=== PATIENT | male | born 1990 | race Caucasian/White ===

== ENCOUNTER 2024-09-06 09:21 | Emergency (ER) | payer MEDICAID, SELFPAY ==
[2024-09-06 09:37] VITALS: BP 160/87; PULSE 89; RESP 18; TEMP 36.4; O2SAT 94
--- NOTE | 2024-09-06 10:05 | W.ED.GENAD ---
Discharge Plan Disposition Patient Disposition: Home Condition: Stable Discharge Details Clinical Impression: Tardive akathisia Primary Care Provider: None,None ED Provider: Chante Castorena Home Meds and New Rx's Prescriptions: New deutetrabenazine 6 mg tablet 6 mg PO BID 14 Days Qty: 28 0RF No Action escitalopram oxalate [Lexapro] 10 mg tablet 10 mg PO DAILY atomoxetine [Strattera] 18 mg capsule 36 mg PO QAM buspirone 10 mg tablet 7.5 mg PO BID methadone 10 mg/5 mL solution 60 mg PO DAILY Patient Comments: [facility] haloperidol 1 mg tablet 1 mg PO BID Patient Comments: since July from formerly [facility], stopped 1 week ago Discharge Instructions Instructions: Adverse Drug Reactions, Adult (DC) Additional Instructions: You were seen in the emergency department today for abnormal body movements likely due to stopping your Haldol. You should continue your Haldol taper as recommended by your provider, and I have started you on a medication called deutetrabenazine, which you will take twice a day. Your primary care provider needs to increase the dose of this medication over time to control your symptoms. If this does not completely control your symptoms, please reach out to your primary care provider to discuss next steps in management. The body movements associated with haloperidol can take several weeks to improve, please be patient and thank you for presenting for care today. HPI General Mode of arrival: ambulatory. Date/Time Provider Initiated Documentation: 09/06/24 09:25. Limitations to Documentation: no limitations. Information obtained by: patient. HPI Narrative: HPI: This is a 34-year-old male patient with a past medical history significant for polysubstance use disorder, who is presenting for evaluation of restless motor agitation. The patient reports he was prescribed Haldol for cocaine induced psychosis, and was instructed by his care provider to taper off of this medication. He elected to stop this medication cold turkey about 1 week ago, and since that time has had restlessness, feels like his skin is crawling, states that he cannot sit still. He has noticed twitching of his eyes and facial muscles, and felt unsafe driving due to these symptoms. He did restart the medication and is undergoing an active taper with blister pack prescription at this time. The patient reports that he has not started any other new medications other than methadone in the last few weeks. He has otherwise been in his normal state of health. He is residing at a sober home, has had no recent illnesses or injuries. He vapes nicotine but does not use alcohol or other illicit substances. Exam: Gen: Awake and alert, appears notably uncomfortable, restless, sitting and standing and pacing around the room HEENT: Non-icteric sclera, pupils equal and reactive at 2 mm bilaterally, EOMs are full. There are no tongue fasciculations Neck: Supple, full range of motion without torticollis Lungs: No apparent respiratory distress, normal respiratory effort. CV: Appears well perfused, strong distal pulses Abdomen: Non-distended MSK: Moves 4 extremities without apparent limitation in ROM Skin: Visualized skin without rashes, cyanosis. Neuro: Normal Gait, no obvious focal deficits or facial asymmetry. Speaks in full, clear sentences. The patient has no clonus or muscular rigidity Psych: Appropriate for situation, notably distressed by his inability to keep still, denies suicidal homicidal ideation MDM: This is a 34-year-old male patient presenting for evaluation of agitated motor movements in the setting of recent cessation of haloperidol. My differential includes but is not limited to tardive dyskinesia, akathisia, certainly considered withdrawal symptoms, acute intoxication. The patient has no evidence on physical examination for serotonin syndrome, neuroleptic malignant syndrome. The patient is reassuringly hemodynamically stable, tolerating p.o. intake, and have a low concern for metabolic and electrolyte derangements, dehydration, kidney injury. He has a safe ride home and so we will initiate treatment, starting with Benadryl and escalating to benzodiazepines as needed. I will also provide the patient with a prescription for deutetrabenazine for long-term management of his condition. ED Course: The patient had slight improvement in his symptoms with Benadryl, received an oral Ativan to good effect. Prescription was sent and I provided him with a referral to establish with primary care in the next week so that this medication can be uptitrated to affect. At this time, the patient has had a full medical evaluation and is safe for discharge to home. They are hemodynamically stable, ambulatory, and tolerating PO. They are understanding of the follow-up plan and return precautions. They left our facility without incident. Chante Castorena MD Related Data Home Medications ?Medication ?Instructions ?Recorded ?Confirmed atomoxetine 18 mg capsule 36 mg PO QAM 09/06/24 09/06/24 (Strattera) buspirone 10 mg tablet 7.5 mg PO BID 09/06/24 09/06/24 deutetrabenazine 6 mg tablet 6 mg PO BID 14 days #28 tabs 09/06/24 escitalopram oxalate 10 mg tablet 10 mg PO DAILY 09/06/24 09/06/24 (Lexapro) haloperidol 1 mg tablet 1 mg PO BID 09/06/24 09/06/24 methadone 10 mg/5 mL oral solution 60 mg PO DAILY 09/06/24 09/06/24 Previous Rx's ?Medication ?Instructions ?Recorded deutetrabenazine 6 mg tablet 6 mg PO BID 14 days #28 tabs 09/06/24 Allergies Allergy/AdvReac Type Severity Reaction Status Date / Time No Known Allergies Allergy Unverified 09/06/24 09:32 General Stated Complaint: DrugWithdr/MAT MAI: 3 Course Vital Signs Vital signs: Vital Signs Temperature 36.4 C L 09/06/24 09:37 Pulse 89 09/06/24 09:37 Respiratory Rate 18 09/06/24 09:37 Blood Pressure 160/87 H 09/06/24 09:37 Pulse Oximetry 94 09/06/24 09:37 Temperature 36.4 C L 09/06/24 09:37 Temperature Source Temporal Artery Scan 09/06/24 09:37 Pulse 89 09/06/24 09:37 Respiratory Rate 18 09/06/24 09:37 Respiratory Effort Normal, Non-Labored 09/06/24 09:41 Respiratory Pattern Normal 09/06/24 09:45 Blood Pressure 160/87 H 09/06/24 09:37 Blood Pressure Position Sitting 09/06/24 09:37 Pulse Oximetry 94 09/06/24 09:37 Oxygen Delivery Method Room Air 09/06/24 09:37 Oxygen Flow Rate 0 09/06/24 09:37 Pain Level 10 09/06/24 09:37 Medical Decision Making Quality:SDOH Health Related Social Needs: No Data to Display PFSH All Active Problems (Updated 09/06/24 @ 10:53 by Chante Castorena MD) Tardive akathisia (Acute) Social History Smoking/Tobacco Use Status: Current every day Tobacco Type: cigarettes and e-cigarettes Smoking risk assessment performed?: Yes Alcohol Intake: former Drug use: Current Sobriety Substance use type: former substance user and prescription drug Details: on methadone, sober 2 weeks since rehab at [facility]. Housing: apartment Do you feel safe at home: Yes Do you feel safe in your relationship?: Yes
[2024-09-06] MEDS: diphenhydrAMINE 25 MG CAP 50 MG PO (10:09)
[2024-09-06] MEDS: LORazepam 1 MG TAB PO (11:15)
--- NOTE | 2024-09-06 12:34 | NUR.NOTE ---
Nursing Note: The patients prescription was sent into [facility] per patient request; however, this pharmacy is not open on the weekend. So he then went to [facility] to see if he could fill the prescription there. [facility] called and asked about the medication and dosing to see if they had the medication in stock. They had questions about the medication that I am unable to answer, so I transferred the call to the provider, but got into the chart to find what the medication was and the directions for administration.
== END 2024-09-06 11:44 | disposition home or self-care (01) ==
PROVIDERS: Emergency Provider Emergency Medicine
DX: G25.71 Drug induced akathisia (principal); T43.4X5A Adverse effect of butyrophenone and thiothixene neuroleptics, initial encounter; Y92.89 Other specified places as the place of occurrence of the external cause
CPT/HCPCS: 99283

== ENCOUNTER 2024-09-09 08:23 | Emergency (ER) | payer MEDICAID, SELFPAY ==
[2024-09-09 08:28] VITALS: BP 160/80; PULSE 104; RESP 18; TEMP 36.6; O2SAT 95
[2024-09-09] MEDS: LORazepam 1 MG TAB PO (09:12)
--- NOTE | 2024-09-09 09:30 | ED.GENADUL_ITS ---
Discharge Plan Disposition Patient Disposition: Home Discharge Details Clinical Impression: Dyskinesia, tardive Primary Care Provider: None,None ED Provider: Radha Sommer Home Meds and New Rx's Prescriptions: New tetrabenazine 12.5 mg tablet 12.5 mg PO BID 7 Days Qty: 14 0RF Continued escitalopram oxalate [Lexapro] 10 mg tablet 10 mg PO DAILY atomoxetine [Strattera] 18 mg capsule 36 mg PO QAM buspirone 10 mg tablet 7.5 mg PO BID methadone 10 mg/5 mL solution 60 mg PO DAILY Patient Comments: [facility] haloperidol 1 mg tablet 1 mg PO BID Patient Comments: since July from [facility], stopped 1 week ago deutetrabenazine 6 mg tablet 6 mg PO BID 7 Days Qty: 14 0RF Discharge Instructions Instructions: Tardive dyskinesia Additional Instructions: Recommendation to follow the taper of your Haldol per instructions detailed in your discharge summary from [place] in conjunction with taking the tetrabenazine Should you have persistent or worsening symptoms, please be reevaluated immediately You have an appointment with a medication provider on the at 11 AM, arrive at 1030 to [facility] services You also have an appointment with Gail Chung, a therapist on the at 2:45 in the afternoon Please be sure to also establish with the health center as discussed Referrals: [facility] [Outside] - 1 week HPI General Date/Time Provider Initiated Documentation: 09/09/24 08:26 . HPI Narrative: 34-year-old male with history of cocaine induced psychosis with recent hospitalization at [facility] presenting with restlessness, agitation, rhythmic movements which are generalized in nature. Patient was started on Haldol for acute paranoia during his hospitalization and was prescribed a taper which he self discontinued secondary to concern for adverse effects and has only taken sporadically since being discharged. Patient states that his symptoms mildly improved when he does take the Haldol which is interesting. Patient denies any chest pain, shortness of breath, fevers, chills, pain to extremities. Denies any difficulty swallowing or vision change. Patient was prescribed an agent for suspected tar dive dyskinesia, however secondary to cost associated with this medication was unable to fill this prescription and therefore remains symptomatic. He was evaluated 2 days prior to arrival today Related Data Home Medications ?Medication ?Instructions ?Recorded ?Confirmed atomoxetine 18 mg capsule 36 mg PO QAM 09/06/24 09/09/24 (Strattera) buspirone 10 mg tablet 7.5 mg PO BID 09/06/24 09/09/24 deutetrabenazine 6 mg tablet 6 mg PO BID 7 days #14 tabs 09/06/24 escitalopram oxalate 10 mg tablet 10 mg PO DAILY 09/06/24 09/09/24 (Lexapro) haloperidol 1 mg tablet 1 mg PO BID 09/06/24 09/09/24 methadone 10 mg/5 mL oral solution 60 mg PO DAILY 09/06/24 09/09/24 tetrabenazine 12.5 mg tablet 12.5 mg PO BID 7 days #14 tabs 09/09/24 Previous Rx's ?Medication ?Instructions ?Recorded deutetrabenazine 6 mg tablet 6 mg PO BID 7 days #14 tabs 09/06/24 tetrabenazine 12.5 mg tablet 12.5 mg PO BID 7 days #14 tabs 09/09/24 Allergies Allergy/AdvReac Type Severity Reaction Status Date / Time No Known Allergies Allergy Unverified 09/06/24 09:32 General Stated Complaint: GenMedical MAI: 3 Exam Narrative Exam Narrative: 34-year-old male, acutely agitated with rhythmic movements noted to all 4 extremities, restless, alert and oriented x 4, ambulatory with steady gait, speaking in complete sentences, no visible signs of trauma Course Vital Signs Vital signs: Vital Signs Temperature 36.6 C 09/09/24 08:28 Pulse 104 H 09/09/24 08:28 Respiratory Rate 18 09/09/24 08:28 Blood Pressure 160/80 H 09/09/24 08:28 Pulse Oximetry 95 09/09/24 08:28 Temperature 36.6 C 09/09/24 08:28 Temperature Source Oral 09/09/24 08:28 Pulse 104 H 09/09/24 08:28 Respiratory Rate 18 09/09/24 08:28 Blood Pressure 160/80 H 09/09/24 08:28 Pulse Oximetry 95 09/09/24 08:28 Oxygen Delivery Method Room Air 09/09/24 08:28 Oxygen Flow Rate 0 09/09/24 08:28 Medical Decision Making 34-year-old male presenting in no acute distress, alert and oriented, agitated. I placed a referral to telepsychiatry, however it had been approximately 2 hours and family would like to be discharged. Patient is alert and oriented and competent to make this decision. I spent approximately 15 minutes trying to find a pharmacy that might be able to fill a central monoamine depleting agent, however secondary to prior authorization and insurance, this is a challenge. [facility] does have tetrabenazine and they are willing to fill this prescription for the patient. He is much more calm after receiving a single dose of 1 mg Ativan p.o. in the emergency department. We have scheduled him an appointment with [facility] for psychiatric management and psychological intervention. Patient feels comfortable with discharge home at this time. He today is bringing his paperwork to [facility] to establish care with primary care physician. Patient will return immediately should he have worsening symptoms or any change in presentation. He is encouraged to use a taper that was prescribed by [facility] in addition to the tetrabenazine for symptomatic treatment. Discharged home in stable condition with stable vitals in the care of his mother. Quality:SDOH Health Related Social Needs: No Data to Display [facility] All Active Problems (Updated 09/09/24 @ 10:49 by GLORIA Lim) Dyskinesia, tardive (Acute) Tardive akathisia (Acute) Social History Smoking/Tobacco Use Status: Current every day Tobacco Type: cigarettes and e- cigarettes Smoking risk assessment performed?: Yes Alcohol Intake: former Drug use: Current Sobriety Substance use type: former substance user and prescription drug Details: on methadone, sober 2 weeks since rehab at [facility]. Housing: apartment Do you feel safe at home: Yes Do you feel safe in your relationship?: Yes
[2024-09-09 10:59] VITALS: BP 143/72; PULSE 93; RESP 18; O2SAT 96
[2024-09-09 11:04] VITALS: RESP 18
== END 2024-09-09 10:59 | disposition home or self-care (01) ==
PROVIDERS: Emergency Provider Physician Assistant
DX: G24.01 Drug induced subacute dyskinesia (principal); T43.4X5A Adverse effect of butyrophenone and thiothixene neuroleptics, initial encounter; F17.210 Nicotine dependence, cigarettes, uncomplicated; F17.290 Nicotine dependence, other tobacco product, uncomplicated
CPT/HCPCS: 99283